=== PATIENT | male | born 1955 | race Caucasian/White ===

== ENCOUNTER 2022-01-22 23:00 | Outpatient (CLI) | payer MEDICARE, MEDICAID ==
[~2022-01-22] VITALS: Ht 172.7 cm; Wt 57.6 kg
[2022-01-22 11:32] LABS: BASOPHILS # (AUTO) 0.1 X10'3 (0-0.2); BASOPHILS % (AUTO) 0.7 % (0-1); EOSINOPHILS # (AUTO) 0.3 X10'3 (0-0.9); EOSINOPHILS % (AUTO) 2.8 % (0-6); LYMPHOCYTES % (AUTO) 7.9 % (21-51); MEAN CORPUSCULAR HEMOGLOBIN 31.4 PG (27.0-31.0); MEAN CORPUSCULAR HGB CONC 33.1 g/dL (33.0-36.5); MEAN CORPUSCULAR VOLUME 94.8 FL (78-98); MEAN PLATELET VOLUME 7.5 FL (7.4-10.4); MONOCYTES # (AUTO) 1.2 X10'3 (0-0.9); MONOCYTES % (AUTO) 10.1 % (2-12); NEUTROPHILS # (AUTO) 9.5 X10'3 (1.8-7.7); NEUTROPHILS % (AUTO) 78.5 % (42-75); PRE OP HEMATOCRIT 41.9 % (42.0-52.0); PRE OP HEMOGLOBIN 13.9 g/dL (14.0-17.9); PRE OP PLATELET COUNT 306 X10'3 (140-440); RED BLOOD COUNT 4.42 X10'6 (4.70-6.10); RED CELL DISTRIBUTION WIDTH 13.9 % (11.5-14.5)
[2022-01-22 11:49] LABS: ALBUMIN 3.6 G/DL (3.4-5.0); ALBUMIN/GLOBULIN RATIO 1.1 (1.1-1.5); ALKALINE PHOSPHATASE 81 IU/L (46-116); BLOOD UREA NITROGEN 9 MG/DL (7-18); BUN/CREATININE RATIO 10.7 (5.4-32.0); CALCIUM 9.1 MG/DL (8.5-10.1); CHLORIDE 95 MMOL/L (99-107); CREATININE 0.84 MG/DL (0.60-1.10); PRE OP ALT 28 U/L (30-65); PRE OP ANION GAP 8 (8-16); PRE OP AST 35 U/L (10-37); PRE OP BILIRUB, TOTAL 0.6 MG/DL (0.0-1.0); PRE OP GLUCOSE 103 MG/DL (70-104); PRE OP POTASSIUM 4.7 MMOL/L (3.4-5.1); eGFR > 90 ML/MIN
[2022-01-22 11:59] LABS: PRE OP SODIUM 128 MMOL/L (135-145)
[~2022-01-22 23:00] MED LIST: ALBU18HF2 INH; AMLO5TAB16 PO; ASPI-1397 PO; ATOR40TA72 PO; BUDE10.22 INH; CYCL-1 PO; DOXA2TAB2 PO; FLUT1BLS16 INH; HYDR-3964 PO; IBUP-1985 PO; LISI20TA28 PO; LISI40TA13 PO; METO-384 PO; TIOT18CA3 INH
[2022-01-25] MEDS ORDERED: METO50TA16 PO (11:05)
[2022-01-26] MEDS ORDERED: ringers solution, lacted 1,000 ML IV SCH (05:00)
[2022-01-26] MEDS ORDERED: ceFAZolin inj. 2,000 MG in dextrose 5%-water 100 ML IV ONE (05:30)
[2022-01-26] MEDS ORDERED: DOCUMENT DATE & TIME OF BETA-BLOCKER PO ONE (05:30)
[2022-01-26] MEDS ORDERED: famotidine 20mg tablet PO ONE (05:30)
== END 2022-01-22 23:59 | disposition home or self-care (01) ==
LOC: PRE-OP 23:00 → EDSTATUS 01-26 11:45
PROVIDERS: ATTEND Surgery
DX: Z01.818 Encounter for other preprocedural examination (principal); K40.30 Unilateral inguinal hernia, with obstruction, without gangrene, not specified as recurrent; J90 Pleural effusion, not elsewhere classified; I70.0 Atherosclerosis of aorta; M47.814 Spondylosis without myelopathy or radiculopathy, thoracic region
CPT/HCPCS: 36415; 71046; 80053; 85025; J0690; J7060; J7120

== ENCOUNTER 2022-03-16 09:45 | Day surgery (SDC) | payer MEDICARE, MEDICAID ==
[2022-03-11 10:09] LABS: BASOPHILS # (AUTO) 0.1 X10'3 (0-0.2); EOSINOPHILS # (AUTO) 0.5 X10'3 (0-0.9); RED CELL DISTRIBUTION WIDTH 13.8 % (11.5-14.5)
[2022-03-11 10:11] LABS: BASOPHILS % (AUTO) 1.1 % (0-1); EOSINOPHILS % (AUTO) 7.1 % (0-6); LYMPHOCYTES # (AUTO) 1.1 X10'3 (1.1-4.8); LYMPHOCYTES % (AUTO) 15.7 % (21-51); MEAN CORPUSCULAR HEMOGLOBIN 31.7 PG (27.0-31.0); MEAN CORPUSCULAR HGB CONC 32.5 g/dL (33.0-36.5); MEAN CORPUSCULAR VOLUME 97.4 FL (78-98); MEAN PLATELET VOLUME 7.4 FL (7.4-10.4); MONOCYTES # (AUTO) 0.8 X10'3 (0-0.9); MONOCYTES % (AUTO) 10.9 % (2-12); NEUTROPHILS # (AUTO) 4.7 X10'3 (1.8-7.7); NEUTROPHILS % (AUTO) 65.2 % (42-75); PRE OP HEMATOCRIT 43.6 % (42.0-52.0); PRE OP HEMOGLOBIN 14.2 g/dL (14.0-17.9); PRE OP PLATELET COUNT 323 X10'3 (140-440); RED BLOOD COUNT 4.47 X10'6 (4.70-6.10)
[2022-03-11 10:19] LABS: ALBUMIN 3.5 G/DL (3.4-5.0); ALBUMIN/GLOBULIN RATIO 1.1 (1.1-1.5); ALKALINE PHOSPHATASE 77 IU/L (46-116); BLOOD UREA NITROGEN 7 MG/DL (7-18); BUN/CREATININE RATIO 7.3 (5.4-32.0); CALCIUM 8.7 MG/DL (8.5-10.1); CREATININE 0.96 MG/DL (0.60-1.10); PRE OP ALT 20 U/L (30-65); PRE OP AST 23 U/L (10-37); PRE OP BILIRUB, TOTAL 0.4 MG/DL (0.0-1.0); PRE OP GLUCOSE 94 MG/DL (70-104); TOTAL CARBON DIOXIDE 27.4 MMOL/L (24-32); TOTAL PROTEIN 6.8 G/DL (6.4-8.2); eGFR 79 ML/MIN
[2022-03-11 10:27] LABS: CHLORIDE 96 MMOL/L (99-107); PRE OP ANION GAP 5 (8-16); PRE OP POTASSIUM 4.5 MMOL/L (3.4-5.1)
[2022-03-11 10:31] LABS: PRE OP SODIUM 128 MMOL/L (135-145)
[2022-03-16] VITALS (8 sets, daily range): BP systolic 130–157; BP diastolic 78–97
[~2022-03-16] VITALS: Ht 172.7 cm; Wt 57.6 kg
[~2022-03-16 09:45] MED LIST changes: -ATOR40TA72 PO; -BUDE10.22 INH; +DOCUMENT DATE & TIME OF BETA-BLOCKER PO ONE; -LISI20TA28 PO; -METO-384 PO; +METO50TA16 PO; +SALT PO; -TIOT18CA3 INH; +ceFAZolin inj. 2,000 MG in dextrose 5%-water 100 ML IV ONE; +famotidine 20mg tablet PO ONE; +normal saline 1000ml 1,000 ML IV SCH
[2022-03-16 11:15] LABS: ISTAT ANION GAP 11 (8-12); ISTAT BUN 8 mg/dL (7-18); ISTAT CL 98 mmol/L (99-107); ISTAT CREATININE 0.8 mg/dL (0.8-1.3); ISTAT GLUCOSE 88 mg/dL (70-104); ISTAT Hct 44 %PCV (42-52); ISTAT IONIZED CALCIUM 1.05 mmol/L (1.03-1.32); ISTAT K 4.3 mmol/L (3.5-5.1); ISTAT NA 131 mmol/L (135-145); ISTAT TOTAL CO2 22 mmol/L (24-32); ISTAT eGFR > 90 ML/MIN
[2022-03-16] MEDS ORDERED: BUPIVAcaine 0.5% inj/PF 30 ML ONE (11:58)
[2022-03-16] MEDS ORDERED: LIDOcaine 1% 30ml preserv. free vial ONE (11:58)
[2022-03-16] MEDS ORDERED: sevoflurane 250ml liquid IH ONE (12:07)
[2022-03-16] MEDS ORDERED: ringers solution, lacted 1,000 ML IV SCH (12:15)
[2022-03-16] MEDS ORDERED: labetalol 20mg/4ml (5mg/ml) syringe IV PRN (12:15)
[2022-03-16] MEDS ORDERED: hydrALAZINE 20mg/ml inj. IV PRN (12:15)
[2022-03-16] MEDS ORDERED: acetaminophen 1,000mg/100ml IV 100 ML IV PRN (12:15)
[2022-03-16] MEDS ORDERED: ondansetron/PF 4mg/2ml inj IV PRN (12:15)
[2022-03-16] MEDS ORDERED: morphine 4 MG/ML inj SYRINge IV PRN (12:15)
[2022-03-16] MEDS ORDERED: proCHLORperazine 10 MG/2 ml inj IV PRN (12:15)
[2022-03-16] MEDS ORDERED: morphine 2 MG/ML inj. syringe IV PRN (12:15)
[2022-03-16] MEDS ORDERED: meperidine/PF 25mg/ml syringe IV PRN ×3 (12:15)
[2022-03-16] MEDS ORDERED: midazolam 1 mg/ML 2ml injection ONE (12:16)
[2022-03-16] MEDS ORDERED: fentaNYL /PF 50mcg/ml 5ml ampule ONE (12:16)
[2022-03-16] MEDS ORDERED: dexamethasone sod phosphate 4mg/ml inj. ONE (12:41)
[2022-03-16] MEDS ORDERED: LIDOcaine 2% (20mg/ml) 5ml vial ONE (12:41)
[2022-03-16] MEDS ORDERED: ondansetron/PF 4mg/2ml inj ONE (12:41)
[2022-03-16] MEDS ORDERED: propofol inj 20 ML IV ONE (12:41)
[2022-03-16] MEDS ORDERED: rocuronium 10mg/ml inj IV ONE (12:41)
[2022-03-16] MEDS ORDERED: ePHEDrine 50MG/ML INJ. ONE (13:10)
[2022-03-16] MEDS ORDERED: BUPIVAcaine 0.5% inj/PF 30 ml vial IJ ONE (13:16)
[2022-03-16] MEDS ORDERED: neostigmine methylsulfate 1 MG/ML 10ml vial ONE (13:25)
[2022-03-16] MEDS ORDERED: glycopyrrolate 0.2mg/ml inj ONE (13:31)
--- NOTE | 2022-03-16 13:37 | NUR ---
Received from OR via , accompanied by Anesthesiologist TRE AND OR NURSE and report given by Anesthesiolgist. PTIS DROWSY YET RESPONDS TO VERBAL STIMULI. DENIES PAIN OR DISCOMFORT. 20G TO RT ARM. 3 LAP SITES WITH BANDAGES; CDI. VSS Addendum: 03/16/22 at 1405 by Shantelle Arechiga RN Amended: Links added.
[2022-03-16] MEDS ORDERED: HYDROcodone/acetaminophen 10/325mg tab PO PRN (13:40)
== END 2022-03-16 15:07 | disposition home or self-care (01) ==
LOC: PAS 09:45
PROVIDERS: ATTEND Surgery
DX: K40.90 Unilateral inguinal hernia, without obstruction or gangrene, not specified as recurrent (principal); I10 Essential (primary) hypertension; J44.9 Chronic obstructive pulmonary disease, unspecified; G89.29 Other chronic pain; N40.0 Benign prostatic hyperplasia without lower urinary tract symptoms; E87.1 Hypo-osmolality and hyponatremia; Z85.118 Personal history of other malignant neoplasm of bronchus and lung; Z87.891 Personal history of nicotine dependence; Z79.01 Long term (current) use of anticoagulants; Z79.899 Other long term (current) drug therapy; Z98.890 Other specified postprocedural states; Z80.1 Family history of malignant neoplasm of trachea, bronchus and lung; Z80.8 Family history of malignant neoplasm of other organs or systems
CPT/HCPCS: 36415; 49650; 71046; 80047; 80053; 85025; 93005; C1781; J0690; J1100; J2175; J2250; J2405; J2704; J2710; J3010; J3490; J7030; J7060; J7120; S0020; Z7506; Z7508; Z7512; A4215; A4618